=== PATIENT | male | born 1965 ===

== ENCOUNTER 2016-10-14 19:43 | Emergency (ER) | payer OTHER ==
[2016-10-14 22:15] LABS: BILIRUBIN 1+ mg/dL (NEGATIVE); BLOOD 1+ Ery/uL (NEGATIVE); CLARITY SLIGHTLY HAZY (CLEAR); COLOR YELLOW (YELLOW); GLUCOSE (U) 2+ mg/dL (NORMAL); KETONE (U) 3+ (LARGE) mg/dL (NEGATIVE); LEUKOCYTES NEGATIVE Leu/uL (NEGATIVE); NITRITE NEGATIVE (NEGATIVE); PROTEIN 1+ mg/dL (NEGATIVE); UROBILINOGEN 0.2 mg/dL (0.2-1.0); pH 5.5 (5.0-9.0)
[2016-10-14 22:18] LABS: URINARY RBC RARE
[2016-10-14 22:19] LABS: SQUAMOUS EPITHELIAL CELLS RARE
== END 2016-10-15 01:15 | disposition home or self-care (01) ==
LOC: FER 19:43
PROVIDERS: Nurse Practitioner
DX: N48.1 Balanitis (principal); N43.3 Hydrocele, unspecified; K61.1 Rectal abscess
CPT/HCPCS: 76870; 81001; 86403; 87070; 87077; 87205

== ENCOUNTER 2016-10-24 20:44 | Emergency (ER) | payer OTHER ==
[2016-10-24 22:15] LABS: BASOPHIL 0.3 % (0-2); HCT 39.7 % (42.0-52.0); HGB 13.8 g/dl (13.2-18.0); LYMPHOCYTE 17.2 % (15-48); MCH 30.2 pg (25.0-31.0); MCHC 34.8 g/dL (32.0-36.0); MCV 86.9 fL (78.0-100.0); MONOCYTE 9.7 % (0-12); MPV 11.7 fL (6.0-9.5); NEUTROPHIL 71.8 % (41-80); PLT 392 K/uL (150-400); RBC 4.57 M/uL (4.70-6.00); RDW 13.5 % (11.5-14.0)
[2016-10-24 22:17] LABS: WBC 15.7 K/uL (4.0-10.5)
[2016-10-24 22:30] LABS: ALBUMIN 2.9 g/dL (3.5-5.0); BILIRUBIN - TOTAL 0.2 mg/dL (0.1-1.0); CREATININE 0.5 mg/dL (0.7-1.2); GLOBULIN (CALCULATION) 3.6 g/dL (2.2-4.2); POTASSIUM 3.1 mmol/L (3.5-5.1); TOTAL PROTEIN 6.5 g/dL (6.4-8.3)
[2016-10-24 22:37] LABS: LACTIC ACID 1.4 mmol/L (0.5-2.2)
[2016-10-25 00:11] LABS: BILIRUBIN NEGATIVE (NEGATIVE); BLOOD NEGATIVE Ery/uL (NEGATIVE); CLARITY CLEAR (CLEAR); COLOR YELLOW (YELLOW); GLUCOSE (U) 3+ mg/dL (NORMAL); KETONE (U) 1+ (SMALL) mg/dL (NEGATIVE); LEUKOCYTES NEGATIVE Leu/uL (NEGATIVE); NITRITE NEGATIVE (NEGATIVE); PROTEIN NEGATIVE (NEGATIVE); SPECIFIC GRAVITY <=1.005 (1.001-1.030); UROBILINOGEN 0.2 mg/dL (0.2-1.0); pH 6.5 (5.0-9.0)
== END 2016-10-25 01:42 | disposition other institution (70) ==
LOC: FER 20:44
PROVIDERS: Emergency Medicine Emergency Medical Services
DX: N49.2 Inflammatory disorders of scrotum (principal); E86.9 Volume depletion, unspecified; R82.90 Unspecified abnormal findings in urine; Z90.81 Acquired absence of spleen
CPT/HCPCS: 36415; 80053; 81003; 83605; 85025; 87040; 87088; J2543; J3370; Q9967